=== PATIENT | male | born 2000 | race Caucasian/White ===

== ENCOUNTER 2022-07-06 21:21 | Emergency (ER) | payer BC ==
[~2022-07-06] VITALS: Ht 177.8 cm; Wt 84.1 kg
[2022-07-06 21:39] VITALS: TEMP 98.4
[2022-07-06 22:32] VITALS: BP 140/72; PULSE 72
== END 2022-07-06 22:32 | disposition home or self-care (01) ==
LOC: COL.ER 21:21
DX: S61.310A Laceration without foreign body of right index finger with damage to nail, initial encounter (principal); Y04.8XXA Assault by other bodily force, initial encounter